=== PATIENT | female | born 1995 | race Hispanic/Latino ===

== ENCOUNTER 2019-02-13 19:07 | Inpatient (IN) | payer MEDICAID, OTHER ==
[2019-02-13] MEDS ORDERED: hydrALAZINE 20 MG/ML VIAL SLOW IVP PRN ×2 (19:50→20:19)
[2019-02-13 19:58] VITALS: BMI 27.4
[2019-02-13] MEDS ORDERED: Ondansetron PF 4 MG/2 ML Vial IVP PRN ×2 (20:19→22:22)
[2019-02-13] MEDS ORDERED: Promethazine HCl 25 MG/ML VIAL IM PRN ×2 (20:19→22:22)
[2019-02-13] MEDS ORDERED: NS / Oxytocin 40 units/1000ml 1,000 ML IV PRN (20:19)
[2019-02-13] MEDS ORDERED: Acetaminophen 500 MG TAB PO PRN (20:19)
[2019-02-13] MEDS ORDERED: Butorphanol Tartrate 1 MG/ML VIAL SLOW IVP PRN (20:19)
[2019-02-13] MEDS ORDERED: Ibuprofen 800 MG TAB PO PRN (20:19)
[2019-02-13] MEDS ORDERED: Lidocaine 1% (PF) 30 ML VIAL SC PRN (20:19)
--- NOTE | 2019-02-13 20:19 | PDOC.FPROB ---
FMR OB H&P: HPI - History of Present Illness Chief Complaint: Contractions History of Present Illness: 23 yo at 37.6 wks by LMP consistent with 19.2 wk US. CALOS: 02/28/19. She said she has had contractions for the past 3 and 1/2 hours that are every 5 minutes. She said she had intermittent suprapubic pain. She also said she has been leaking a small amount of fluid since Monday. Primary Care Physician: PNC- Dr. Hernandez FMR OB H&P: Current - Care : 1 Para: 0 Gestational age: 37.6 wks Due date: 02/28/19 Dating Criteria: LMP consistent with 19.2 US - OB Labs Blood type: A RH: positive Antibody Screen: negative HIV: negative RPR: negative HepBsAg: negative Rubella: immune 1 hour gtt: 140 3 hour GTT: 95, 93, 122, 94 GBS: negative H&H: 10.3/31.7 Platelets: 277 FMR OB H&P: History - Past Medical History PMH: None - OB History OB History: Anemia and Glucose intolerance - WR[employer] History WR[employer] History: Normal Pap in Jun 2018. - Surgical History Sx History: None - Social History Social History: No tobacco, alcohol, or drug use - Family History Family History: None FMR OB H&P: Medications - Current Home Medications: Medication Instructions Recorded Confirmed Type No Known 02/13/19 02/13/19 History Allergies/Adverse Reactions: Allergies Allergy/AdvReac Type Severity Reaction Status Date / Time No Known Allergies Allergy Unverified 02/13/19 19:59 FMR OB H&P: ROS - Review of Systems General: denies: fever/chills Eyes: denies: vision changes ENT: denies: nasal congestion Cardiovascular: denies: chest pain Respiratory: denies: shortness of breath Gastrointestinal: reports: abdominal pain Genitourinary (Female): reports: vaginal bleeding, contractions Musculoskeletal: denies: pain Neurologic: denies: numbness Integumentary: denies: rash Hematologic/Lymphatic: denies: enlarged lymph nodes FMR OB H&P: Vital Signs - Maternal Vital signs: Vital Signs - First Documented Temp Pulse Resp BP Pulse Ox 98.3 F 105 H 16 121/82 99 02/13/19 19:52 02/13/19 19:52 02/13/19 19:52 02/13/19 19:52 02/13/19 19:52 - Heart Tones Baseline: 150 Variability: moderate Acceleration: present Deceleration: absent Category: category 1 [place] contractions every: 5 minutes FMR OB H&P: Physical Exam - Physical Exam General: NAD HEENT: normocephalic and atraumatic, MMM Neck: supple Heart: RRR, normal S1/S2 General: CTAB Abdomen: soft, bowel sound present Musculoskeletal: normal gait and station, pulses present Neurological: no focal deficit Skin: no rash Lymphatic: no LAD Psychiatric: normal mood and affect - Pelvic Exam Vulva: no masses, no lesions Deviation from normal: blood and fluid with valsalva FMR OB H&P: A/P - Problem List (1) Current Visit: Yes Status: Acute Qualifiers: Weeks of gestation: 37 weeks Qualified Code(s): Z3A.37 - 37 weeks gestation of Disposition: 23 yo at 37.6 wks by LMP consistent with 19.2 wk US. 1. sIUP * Pt has pooling and blood in posterior fornix * Cervical check was 90/0 * FHT: Category 1 strip with moderate variability and accerlerations, baseline 150 * Will admit with augmentation as needed. Discussion: Date/Time: 02/13/192008 This H&P was discussed with [] and [] who agree with the above documentation and plan.
[2019-02-13] MEDS ORDERED: NS w/ Oxytocin 10 units 500 ML IV SCH (20:30)
[2019-02-13] MEDS: Lactated Ringer's 1,000 ML IV SCH ×2 (20:40→22:00)
[2019-02-13] MEDS ORDERED: Fentanyl 4 mcg/Bup 0.1% Cadd 100 ML ONE (21:33)
[2019-02-13] MEDS ORDERED: Lidocaine 1.5%/Epinephrine 1:200,000 5 ML AMPUL IJ ONE (21:41)
[2019-02-13 21:42] LABS: Hemoglobin 10.3 g/dL (12.0-16.0); Mean Corpuscular HGB CONC 32.6 g/dL (32.0-36.0); Mean Corpuscular Hemoglobin 23.5 pg (27.0-31.0); Mean Corpuscular Volume 72.2 fL (78.0-98.0); Mean Platelet Volume 9.2 fL (7.4-10.4); Platelet Count 277 thou/uL (130-400); RBC Distribution Width 20.1 % (11.5-14.5); Red Blood Cell (RBC) Count 4.39 mill/uL (4.20-5.40); White Blood Cell (WBC) Count 19.5 thou/uL (4.8-10.8)
[2019-02-13 22:03] LABS: Syphilis Antibody Nonreactive (Nonreactive); Syphilis Antibody Index 0.03 S/CO (<1.00 Non-Reactive)
[2019-02-13] MEDS ORDERED: Acetaminophen 325 MG TAB PO PRN (22:22)
[2019-02-13] MEDS ORDERED: Lactated Ringer's 500 ML IV PRN (22:22)
[2019-02-13] MEDS ORDERED: diphenhydrAMINE 50 MG/ML VIAL IVP PRN (22:22)
[2019-02-13] MEDS ORDERED: Naloxone HCl 0.4 mg/ml Vial IVP PRN ×2 (22:22)
[2019-02-13] MEDS ORDERED: ePHEDrine/0.9% NaCl/PF SYRINGE 50 mg/10 ml SLOW IVP PRN (22:22)
[2019-02-13] MEDS ORDERED: Communication Order-Pharmacy FS SCH (22:30)
[2019-02-13] MEDS ORDERED: Fentanyl 4 mcg/Bupivacaine 0.1% Cassette 100 ML EPIDURAL SCH (22:30)
[2019-02-13] MEDS ORDERED: Penicillin G Potassium 5 MILL.UNITS in Sodium Chloride 0.9% 100 ML IVPB SCH (22:30)
[2019-02-13] MEDS ORDERED: Penicillin G Potassium 5 MILL.UNITS VIAL ONE (22:31)
[2019-02-13 22:51] LABS: HBSAg Index 0.46 S/CO (0-0.99); Hep B Surf Ag Non-Reactive S/CO (NonReactive)
--- NOTE | 2019-02-13 22:57 | PDOC.LDPN ---
Labor & Delivery Progress Note - Subjective Subjective: comfortable - Objective Vital signs reviewed and normal: yes General: NAD, resting Uterine fundus: non tender Dilation: 8 Effacement: 100% Station: 0 FHT: category 1 [place] contractions every: 3 mins AROM: clear fluid (forebag) -: Patient with unknown length of rupture but reports leaking as early as Monday. WBC 19.5. Will start PCN. Continue current management.
--- NOTE | 2019-02-14 00:09 | PDOC.LDPN ---
Labor & Delivery Progress Note - Subjective Subjective: comfortable, no concerns - Objective Vital signs reviewed and normal: yes General: NAD, resting, breathing through contractions Uterine fundus: non tender Dilation: 8 Effacement: 100% Station: 0 FHT: category 1 (baseline 140, mod variability, pos accels, no late or variable decels), variability present [place] contractions every: 3-5 min AROM: clear fluid Resuscitative measures: maternal IV fluids, maternal position change - Assessment (1) Current Visit: Yes Status: Acute Qualifiers: Weeks of gestation: 37 weeks Qualified Code(s): Z3A.37 - 37 weeks gestation of Plan: continue plan of care -: 1) TIUP: - continue plan of care - epidural placed and pt comfortable - unknown rupture time, possibly since Monday, cont abx - cervical check /0 - cat 1 strip with baseline 140, mod variability, no late or variable decels - cervical cehcks q2hr
[2019-02-14] MEDS: Penicillin G 2.5 MILL.units 2.5 MILL.UNITS in Premix Bag 1 BAG IVPB SCH ×4 (01:30→11:00)
[2019-02-14] MEDS ORDERED: Lanolin Ointment 7 GM TUBE TOP PRN (05:53)
[2019-02-14] MEDS ORDERED: Ondansetron PF 4 MG/2 ML Vial IVP PRN (05:53)
[2019-02-14] MEDS ORDERED: Milk Of Magnesia 30 ML UDCUP PO PRN (05:53)
[2019-02-14] MEDS ORDERED: Bisacodyl 10 MG SUPP PR PRN (05:53)
[2019-02-14] MEDS ORDERED: NS / Oxytocin 40 units/1000ml 1,000 ML IV SCH (05:53)
[2019-02-14] MEDS ORDERED: hydrALAZINE 20 MG/ML VIAL SLOW IVP PRN (05:53)
[2019-02-14] MEDS ORDERED: Adacel (T-DAP) 0.5 ML SYRINGE IM ONE (05:53)
[2019-02-14] MEDS ORDERED: Benzocaine-Menthol 82.5 ML CAN TOP PRN (05:53)
[2019-02-14 06:47] LABS: Hemoglobin 9.4 g/dL (12.0-16.0); Mean Platelet Volume 8.8 fL (7.4-10.4); Platelet Count 230 thou/uL (130-400); RBC Distribution Width 20.1 % (11.5-14.5); Red Blood Cell (RBC) Count 4.08 mill/uL (4.20-5.40); White Blood Cell (WBC) Count 25.5 thou/uL (4.8-10.8)
[2019-02-14 07:26] LABS: Band 29 % (5-11); Eosinophils 1 % (0-10); Lymphocytes 5 % (21-51); MDiff Complete? YES; Monocytes 4 % (0-10); Neutrophil 60 % (42-75); Ovalocytes SLIGHT = 2-5 cells (100X) (0-1/hpf); Platelet Morphology Comment Appears Adequate; Polychromasia MODERATE = 3-4 cells (100X) (0-2/hpf); Reactive Lymphocytes 1 % (0-10)
[2019-02-14] MEDS: Ibuprofen 800 MG TAB PO SCH ×3 (07:48→21:18)
--- NOTE | 2019-02-14 08:06 | PDOC.PP ---
Post Progress Note Post Day #: 0 Subjective: Patient doing well this AM. No significant overnight events. Patient tolerating PO. Remained afebrile overnight. Denies significant abdominal pain, shortness of breath, palpitations. PO intake tolerated: yes Flatus: yes Ambulation: yes Weight Weight 72.575 kg - Physical Examination General: NAD Cardiovascular: RRR Respiratory: non-labored breathing Abdominal: + bowel sounds, lochia (minimal), no distention, appropriately TTP Fundus firm & at: below umbilicus Neurological: no gross focal deficits Psychiatric: A&Ox3, normal affect Result Diagrams: 02/14/19 06:30 Additional Labs: Post Labs Blood Type A POSITIVE 02/13/19 21:53 Hep Bs Antigen Non-Reactive S/CO (NonReactive) 02/13/19 21:17 (1) Term delivered Code(s): O80 - ENCOUNTER FOR FULL-TERM UNCOMPLICATED DELIVERY Status: Acute (2) Anemia affecting Code(s): O99.019 - ANEMIA COMPLICATING , UNSPECIFIED TRIMESTER Status : Acute (3) Leukocytosis Code(s): D72.829 - ELEVATED WHITE BLOOD CELL COUNT, UNSPECIFIED Status: Acute - Assessment/Plan 23 year old at 38.0 wks delivered DAGOBERTOA F at 3:08 on 02/14. Apgars 7/9. 1. Term , delivered - Routine PP care - PP day #0 - Ice pack to perineum - Encourage early ambulation - Minimal lochia 2. First degree perineal laceration s/p repair - Patient doing well - Lochia minimal - Ice pack as needed 3. Leukocytosis - 19 on admission with ROM >18h; however, GBS negative. Patient remained afebrile. - Patient was given Pen G on admission for above. She received 2 doses. - Per ACOG, no indication to give antibiotics given GBS negative confirmatory tool (culture) without fever - WBC did trend up today to 25 with 29% bands. This may be 2/2 leukamoid reaction. Patient still without sign/symptoms of infection - Continue to monitor 4. Anemia of - Iron supplementation - Stool softener Dispo: Anticipate 48h stay. Plan for possible d/c home on Monday. OBGYN ATTENDING: Case reviewed. Patient seen. No CLINICAL EVIDENCE of metritis or infection. WBC count likey reactive from labor process. Patient received ABX despite GBS negative status and no temp >100.4
[2019-02-14] MEDS: Docusate Calcium (SURFAK) 240 MG CAP PO SCH ×2 (08:53→21:18)
[2019-02-14] MEDS: Ferrous Sulfate 325 MG TAB PO SCH ×2 (08:54→17:35)
[2019-02-14] MEDS: Prenatal Vitamin 1 TAB PO SCH (08:54)
[2019-02-14] MEDS: Lactated Ringer's 1,000 ML IV SCH ×2 (11:00→21:16)
[2019-02-15] MEDS: Ibuprofen 800 MG TAB PO SCH ×2 (05:44→15:58)
[2019-02-15] MEDS: Lactated Ringer's 1,000 ML IV SCH ×2 (05:45→15:50)
--- NOTE | 2019-02-15 07:35 | PDOC.PP ---
Post Progress Note Post Day #: 1 Subjective: Patient doing well. Mild vaginal pain from laceration. Minimal lochia. Tolerating PO. Afebrile. Feeling well. PO intake tolerated: yes Flatus: yes Ambulation: yes Vital Signs (12 hours) Temp Pulse Resp BP Pulse Ox 02/15/19 04:05 98.5 F 98 16 104/57 L 02/14/19 19:40 98.4 F 100 16 108/70 98 Weight Weight 72.575 kg - Physical Examination General: NAD Cardiovascular: RRR Respiratory: non-labored breathing Abdominal: + bowel sounds, lochia (minimal), no distention, appropriately TTP Fundus firm & at: at umbilicus Skin: no rash Neurological: no gross focal deficits Psychiatric: A&Ox3, normal affect Result Diagrams: 02/14/19 06:30 Additional Labs: Post Labs Blood Type A POSITIVE 02/13/19 21:53 Hep Bs Antigen Non-Reactive S/CO (NonReactive) 02/13/19 21:17 (1) Term delivered Code(s): O80 - ENCOUNTER FOR FULL-TERM UNCOMPLICATED DELIVERY Status: Acute (2) Anemia affecting Code(s): O99.019 - ANEMIA COMPLICATING , UNSPECIFIED TRIMESTER Status : Acute (3) Leukocytosis Code(s): D72.829 - ELEVATED WHITE BLOOD CELL COUNT, UNSPECIFIED Status: Acute - Assessment/Plan 23 year old at 38.0 wks delivered ALEN F at 3:08 on 02/14. Apgars 7/9. 1. Term , delivered - Routine PP care - PP day #1 - Ice pack to perineum - Minimal lochia 2. First degree perineal laceration s/p repair - Patient doing well - Lochia minimal - Ice pack as needed - Examined today and no swelling. Laceration appears to be healing well. 3. Leukocytosis - 19 on admission with ROM >18h; however, GBS negative. Patient remained afebrile. - Patient was given Pen G on admission for above. She received 2 doses. - Per ACOG, no indication to give antibiotics given GBS negative confirmatory tool (culture) without fever - WBC did trend up to 25 with 29% bands. This may be 2/2 leukamoid reaction. Patient still without sign/symptoms of infection - AM CBC pending - No signs or symptoms of infection 4. Anemia of - Iron supplementation - Stool softener Dispo: D/C home tomorrow
[2019-02-15 08:36] LABS: #Basophils 0.1 thou/uL (0.0-0.2); #Eosinphils 0.2 thou/uL (0.0-0.7); #Lymphocytes 3.2 thou/uL (1.20-3.40); #Monocytes 0.8 thou/uL (0.11-0.59); #Neutrophils 10.4 thou/uL (1.40-6.50); %Basophils 0.5 % (0.0-1.0); %Eosinophils 1.3 % (0.0-10.0); %Monocytes 5.3 % (0.0-10.0); %Neutrophils 70.9 % (42.0-75.0); Hemoglobin 8.9 g/dL (12.0-16.0); Mean Corpuscular HGB CONC 32.4 g/dL (32.0-36.0); Mean Corpuscular Hemoglobin 23.6 pg (27.0-31.0); Mean Platelet Volume 9.2 fL (7.4-10.4); Platelet Count 228 thou/uL (130-400); RBC Distribution Width 20.3 % (11.5-14.5); Red Blood Cell (RBC) Count 3.77 mill/uL (4.20-5.40); White Blood Cell (WBC) Count 14.7 thou/uL (4.8-10.8)
[2019-02-15] MEDS: Prenatal Vitamin 1 TAB PO SCH (09:28)
[2019-02-15] MEDS: Docusate Calcium (SURFAK) 240 MG CAP PO SCH (09:28)
[2019-02-15] MEDS: Ferrous Sulfate 325 MG TAB PO SCH (09:28)
--- NOTE | 2019-02-15 10:10 | PDOC.OPDEL ---
OB Operative/Delivery Note Delivery Dr/Surgeon: Andrea Brink Pre-Delivery Diagnosis: active labor Procedure/Post Delivery Dx: spontaneous vaginal delivery Weeks gestation: 38 Anesthesia: epidural - Findings A Sex: female - 1 min: 7 - 5 min: 9 - Additional Findings/Plan Placenta delivered: spontaneous Repaired Obstetrical Laceration: 1st degree Estimated blood loss: 269 mL Compilations/Other Findings: Delivering Physician: Dr. Keena Brink Attending: Dr. Karey Mendez Procedure: Spontaneous Vaginal Delivery Anesthesia: Epidural EBL: 269 mL Pre-op Diagnosis: 1. Term intrauterine in labor 2. Maternal hx of anemia of 3. Leukocytosis 4. Possible ROM >18h 5. Glucose intolerance Post-op Diagnosis: 1. Term intrauterine , delivered 2. Maternal hx of anemia of 3. Leukocytosis 4. Possible ROM >18h 5. Glucose intolerance Indications: A 23y/o female presents in active labor. Delivery Note: This is 23yo F @ 38.0 wks who delivered a viable F infant at 3:08 on 02/14. On admission, patient was noted to have WBC of 19. She remained afebrile but was started on Pen G given unknown timing of ROM with possible ROM >18h. A vigorous F was delivered over an intact perineum in the occipitoanterior position. Anterior Shoulder and then remainder of the body delivered. Nuchal cord x1, reduced. The head was held down and mouth and nares were bulb suctioned. Cord clamped and cut and cord blood collected. Placenta delivered intact with a 3 vessel cord noted. Fundal massage was performed and the fundus was firm. The cervix and vagina were inspected and a first degree perineal laceration was noted and repaired with 3-0 Vicryl in the usual fashion with good approximation and hemostasis. Infant went to nursery in good condition for routine care. Apgars were 7/9 at 1 & 5 minutes, respectively. Patient tolerated delivery well and went to after routine recovery/ care. Addendum - Attending - Attending Attestation I was present for the uncomplicated delivery of a viable female .
[2019-02-15 20:42] VITALS: BP 119/76; TEMP 99
== END 2019-02-15 21:05 | disposition home or self-care (01) | DRG 807 ==
LOC: L&D/OP 19:07 → L&D 22:28 → 3SE 02-14 11:10 → 3SW 02-14 14:11 → 3SE 02-14 14:12
PROVIDERS: ADMIT Obstetrics & Gynecology; ATTEND Obstetrics & Gynecology
PROC: 10E0XZZ Delivery of Products of Conception, External Approach (ICD-10-PCS; principal; 2019-02-15)
PROC: 0HQ9XZZ Repair Perineum Skin, External Approach (ICD-10-PCS; 2019-02-15)
DX: O99.02 Anemia complicating childbirth (principal); Z37.0 Single live birth; O70.0 First degree perineal laceration during delivery; D64.9 Anemia, unspecified; Z3A.37 37 weeks gestation of pregnancy; D72.829 Elevated white blood cell count, unspecified
CPT/HCPCS: 36415; 51702; 84145; 85025; 85027; 86780; 86850; 86900; 86901; 87340; 99285; J2001; J2540; J3490

== ENCOUNTER 2020-12-30 08:37 | Outpatient (CLI) | payer OTHER | END 2020-12-30 08:38 | disposition home or self-care (01) | LOC: BICULT 08:37 | PROVIDERS: ATTEND Family Medicine | DX: Z34.82 Encounter for supervision of other normal pregnancy, second trimester (principal); Z3A.20 20 weeks gestation of pregnancy | CPT/HCPCS: 76805 ==